=== PATIENT | male | born 1960 | race Caucasian/White ===

== ENCOUNTER 2022-09-20 00:52 | Emergency (ER) | payer MEDICAID, SELFPAY ==
[2022-09-20] VITALS (23 sets, daily range): BP systolic 85–125; BP diastolic 58–101; PULSE 106–150; RESP 18–51; TEMP 36.6; O2SAT 80–100; BMI 27.8
--- NOTE | 2022-09-20 00:54 | ECG_ITS ---
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 Measurements Intervals [place] Rate: 140 P: 68 PA: 137 QRS: 40 QRSD: 102 T: 25 QT: 237 QTc: 363 Interpretive Statements SINUS TACHYCARDIA, POSSIBLE ATRIAL FLUTTER PROBABLE INFERIOR MYOCARDIAL INFARCTION , PROBABLY OLD [35 ms Q WAVE IN II/aVF] ST DEPRESSION, CONSIDER SUBENDOCARDIAL INJURY [0.1+ mV ST DEPRESSION] No previous ECG available for comparison Electronically Signed On 09-20-2022 13:20:39 CDT by Benton Goodman M.D. [id number]
--- NOTE | 2022-09-20 00:56 | XRR_ITS ---
PROCEDURE INFORMATION: Exam: XR Chest Exam date and time: 09/20/2022 12:52 AM Age: 62 years old Clinical indication: Dyspnea and shortness of breath and tachypnea; Patient HX: Resp distress. Severe SOB with tachypnea. Immediately put on bipap upon er arrival. History of copd and chf. TECHNIQUE: Imaging protocol: Radiologic exam of the chest. Views: 1 view. Total images: 1 COMPARISON: No relevant prior studies available. FINDINGS: Lungs: Pulmonary vascular congestion. Pulmonary interstitial edema and early pulmonary edema felt to be present. An underlying pneumonia cannot be excluded. Pleural spaces: Unremarkable. No pleural effusion. No pneumothorax. Heart/Mediastinum: Cardiomegaly. Bones/joints: Unremarkable. XR/XR chest 1V portable [id number] IMPRESSION: 1. Cardiomegaly with pulmonary vascular congestion. 2. Pulmonary interstitial edema and early pulmonary edema felt to be present. An underlying pneumonia cannot be excluded.
[2022-09-20] MEDS: albuterol 2.5 mg/3 mL Neb 5 MG INHALATION (01:02)
[2022-09-20] MEDS: dilTIAZem 5 mg/mL SDV 5 mL 10 MG IVP (01:04)
[2022-09-20 01:05] LABS: Basophils % 0.2 %; Eosinophils % 0.1 %; Hemoglobin 13.9 g/dL (11.7-16.6); Lymphocytes # 2.8 10^3/uL (0.8-4.8); Lymphocytes % 17.1 %; Mean Corpuscular HGB Conc 33.1 g/dL (30.0-36.0); Mean Corpuscular Hemoglobin 32.5 pg (28.0-34.0); Mean Corpuscular Volume 98.1 fl (80-94); Mean Platelet Volume 9.6 fL (7.4-10.4); Neutrophils % 75.2 %; Nucleated Red Blood Cells % 0 %; Platelet Count 274 10^3/cmm (130-400); Red Blood Count 4.28 10^6/uL (4.1-5.3); Red Cell Distribution Width 13.2 % (12.1-15.1); White Blood Count 16.3 10^3/uL (4.0-10.0)
[2022-09-20] MEDS: ipratropium 0.5 mg/2.5 mL Neb INHALATION (01:05)
[2022-09-20] MEDS: hydrocortisone 100 mg/2 mL SDV IVP (01:06)
--- NOTE | 2022-09-20 01:12 | ED_ITS ---
HPI - SOB/Dyspnea General: Chief Complaint: Shortness of Breath/Dyspnea Stated Complaint: difficulty breathing Time Seen by Provider: 09/20/22 00:56 Source: EMS Mode of arrival: EMS Limitations: no limitations History of Present Illness: HPI Narrative: 62-year-old male has a history of COPD along with extensive cardiac history [facility] she was transferred to [facility] she was then discharged but they are supposed to schedule him in 2 weeks for a CABG. He states today got severely short of breath called [facility] they arrived he was in the 60s on room air he does not wear oxygen at home he was tachycardic with EMS they did give him adenosine and tried a cardioversion but when I looked at the rhythms that look like a sinus tachycardia and he is in sinus tachycardia here. He denies any chest pain but does have severe short of breath he is respirations are in the 40s able to speak in only 2-4 word sentences. No cough or fever. Associated symptoms: Deny abdominal pain, chest pain, fever(s), nausea or vomiting Review of Systems Const: Denies: fever(s) or chills ENMT: Denies: throat pain or dental pain Card: Denies: chest pain Resp: Reports: dyspnea and wheezing GI: Denies: abdominal pain, nausea, vomiting or diarrhea : Denies: dysuria Musc: Denies: neck pain or back pain Skin/Breast: Denies: rash Neuro: Denies: headache(s) Physical Exam Const: COMMON NORMALS: patient oriented x3 GENERAL APPEARANCE: in distress and ill appearing HENMT: COMMON NORMALS: normocephalic and atraumatic HEAD & SCALP: normocephalic and atraumatic Eye: COMMON NORMALS: Equal, round and reactive pupils present and EOMs intact bilaterally PUPIL: Yes Equal, round and reactive pupils present Neck/C-Spine: COMMON NORMALS: full ROM and supple Chest: COMMONS NORMALS: normal inspection of the chest and normal palpation of entire chest wall Resp: EFFORT & INSPECTION: Yes respiratory distress, Yes labored and Yes uses accessory muscles AUSCULTATION: rales and wheezes Cardio: COMMON NORMALS: regular rhythm and No murmurs present (Cardio) RATE: tachycardic RHYTHM: regular rhythm GI: COMMON NORMALS: Normal to inspection, nondistended, normoactive bowel sounds present, Soft to palpation, non-tender and no masses PALPATION: Yes Soft to palpation Extremity: COMMON NORMALS: normal to inspection and full ROM Neuro: COMMON NORMALS: patient oriented x3, moves all extremities and no focal motor deficits Psych: COMMON NORMALS: mental status grossly normal, Normal thought process present and cooperative THOUGHT PROCESS: Normal thought process present Skin: COMMON NORMALS: no rashes or lesions noted and no wounds GENERAL SKIN EXAM: no rashes or lesions noted Course Vital Signs: Vital signs: Vital Signs Temperature 97.9 F 09/20/22 00:55 Pulse Rate 120 H 09/20/22 02:30 Respiratory Rate 41 H 09/20/22 02:30 Blood Pressure 95/71 09/20/22 02:30 Pulse Oximetry 99 09/20/22 02:30 Oxygen Delivery Me thod BiPAP 09/20/22 02:30 Fraction of Inspir ed Oxygen 80 09/20/22 01:22 MDM - SOB/Dyspnea Medical Decision Making Patient presents with shortness of breath with pulmonary edema he is much improved here on BiPAP his first troponin is elevated consistent with NSTEMI EKG shows no signs of ST elevation I did speak to [facility] as patient is scheduled to have a CABG there and will transfer there for higher level of care for CT surgery. Lab Data 09/20/22 00:25 09/20/22 00:25 Labs/Radiology: Laboratory Results WBC 16.3 10^3/uL (4.0-10.0) H 09/20/22 00:25 RBC 4.28 10^6/uL (4.1-5.3) 09/20/22 00:25 Hgb 13.9 g/dL (11.7-16.6) 09/20/22 00:25 Hct 42.0 % (42.0-52.0) 09/20/22 00:25 MCV 98.1 fl (80-94) H 09/20/22 00:25 MCH 32.5 pg (28.0-34.0) 09/20/22 00:25 MCHC 33.1 g/dL (30.0-36.0) 09/20/22 00:25 RDW 13.2 % (12.1-15.1) 09/20/22 00:25 Plt Count 274 10^3/cmm (130-400) 09/20/22 00:25 MPV 9.6 fL (7.4-10.4) 09/20/22 00:25 Neut % (Auto) 75.2 % 09/20/22 00:25 Lymph % (Auto) 17.1 % 09/20/22 00:25 [place] % (Auto) 6.0 % 09/20/22 00:25 Eos % (Auto) 0.1 % 09/20/22 00:25 Baso % (Auto) 0.2 % 09/20/22 00:25 Neut # (Auto) 12.30 10^3/uL (1.8-7.7) H 09/20/22 00:25 Lymph # (Auto) 2.8 10^3/uL (0.8-4.8) 09/20/22 00:25 [place] # (Auto) 1.0 10^3/uL (0.2-0.9) H 09/20/22 00:25 Eos # (Auto) 0.0 10^3/uL (0.0-0.8) 09/20/22 00:25 Baso # (Auto) 0.0 10^3/uL (0.0-0.1) 09/20/22 00:25 Nucleated RBC % (auto) 0 % 09/20/22 00:25 Nucleated RBCs # 0.0 /100WBC 09/20/22 00:25 PT 14.40 SECONDS (12.1-14.9) 09/20/22 00:25 INR 1.08 (0.8-1.2) 09/20/22 00:25 Specimen Type Arterial 09/20/22 01:04 Sample Site Radial, left 09/20/22 01:04 ABG pH 7.25 (7.35-7.45) L 09/20/22 01:04 ABG pCO2 46.0 mmHg (35-45) H 09/20/22 01:04 ABG pO2 155.0 mmHg (80.0-100.0) H 09/20/22 01:04 ABG HCO3 20.2 mmol/L (22-26) L 09/20/22 01:04 ABG Base Excess -7.0 mmol/L (-2.0-2.0) L 09/20/22 01:04 Alex Test Pos 09/20/22 01:04 Hematocrit 41.0 % (42-52) L 09/20/22 01:04 O2 Delivery Device Bipap 09/20/22 01:04 FiO2 100.0 % 09/20/22 01:04 Contact Worker ID [email or web address] 09/20/22 01:04 Sodium 131 mmol/L (136-145) L 09/20/22 00:25 Potassium 4.5 mmol/L (3.5-5.1) 09/20/22 00:25 Chloride 95 mmol/L (98-107) L 09/20/22 00:25 Carbon Dioxide 22 mmol/L (22-29) 09/20/22 00:25 Anion Gap 18.5 (5-19) 09/20/22 00:25 BUN 14 mg/dL (8-23) 09/20/22 00:25 Creatinine 1.1 mg/dL (0.7-1.2) 09/20/22 00:25 GFR Calculation 67.4 mL/min (90-130) L 09/20/22 00:25 Glucose 114 mg/dL (65-115) 09/20/22 00:25 Calculated Osmolality 273 mOsm/kg (285-295) L 09/20/22 00:25 Calcium 9.0 mg/dL (8.5-10.5) 09/20/22 00:25 Total Bilirubin 0.8 mg/dL (0.15-1.2) 09/20/22 00:25 AST 43 U/L (0-40) H 09/20/22 00:25 ALT 43 U/L (0-41) H 09/20/22 00:25 Alkaline Phosphatase 107 U/L (40-130) 09/20/22 00:25 Troponin T Baseline 1220 ng/L (0-15) H* 09/20/22 00:25 NT-Pro-B Natriuret Pep 8391 pg/mL (0-125) H 09/20/22 00:25 Total Protein 6.3 g/dL (6.6-8.7) L 09/20/22 00:25 Albumin 4.0 g/dL (3.5-5.2) 09/20/22 00:25 Globulin 2.3 g/dL (1.3-4.6) 09/20/22 00:25 EKG Data EKG 1: I personally reviewed and interpreted this EKG as follows: EKG Interpretation Date: 09/20/22 EKG interpretation time: 00:54 Interpretation: sinus tach hr [address] or t wave abnormalities qrs 98 qtc 318 Critical Care Time Critical Care Time: Critical Care Time: Yes Total Critical Care Time: 50 Attestation: The high probability of a clinically significant, sudden or life threatening deterioration of the patient's resp system(s) required my full and direct att ention, intervention and personal management. The critical care time is as shown. This time is in addition to time spent performing any reported procedures but includes the following: [x] Data and vital sign review and interpretation [x] Patient assessment, examination and intervention [x] Documentation [x] Medication orders and management Discharge Plan Discharge Patient Disposition: Admitted As Inpatient Clinical Impression: Non-ST elevation PR (NSTEMI), Pulmonary edema, Acute respiratory failure with hypoxia Condition: Stable Prescriptions: No Action budesonide-formoterol [Symbicort] 160-4.5 mcg/actuation HFA aerosol inhaler 2 puff inhalation BID albuterol 90 mcg/actuation aerosol inhalation lisinopril 30 mg tablet 30 mg PO DAILY prednisone 20 mg tablet 20 mg PO BID 5 Days Qty: 10 0RF azithromycin 250 mg tablet See Rx Instructions PO .COMPLEX Qty: 6 0RF Rx Instructions: take 500 mg today (day 1), then 250 mg for 4 days (days 2-5) PO metoprolol succinate 25 mg tablet extended release 24 hr 25 mg PO DAILY atorvastatin 40 mg tablet 40 mg PO DAILY Coding Level of Care Code ED Senior Compliance Analyst for Quynh Goodson
[2022-09-20 01:14] LABS: INR 1.08 (0.8-1.2)
[2022-09-20 01:15] LABS: ABG PH Result 7.25 (7.35-7.45); Blood Gas Allen Test Pos; Blood Gas Sample Site Radial, left; Blood Gas Sample Type Arterial; HCO3 ABG 20.2 mmol/L (22-26)
[2022-09-20 01:16] LABS: Oxygen Device BIPAP
[2022-09-20 01:29] LABS: Troponin(5th) Baseline 1220 ng/L (0-15)
[2022-09-20 01:33] LABS: Alanine Aminotransferase 43 U/L (0-41); Alkaline Phosphatase 107 U/L (40-130); Anion Gap 18.5 (5-19); Aspartate Amino Transferase 43 U/L (0-40); Blood Urea Nitrogen 14 mg/dL (8-23); Carbon Dioxide 22 mmol/L (22-29); Chloride 95 mmol/L (98-107); Globulin 2.3 g/dL (1.3-4.6); Glomerular Filtration Rate 67.4 mL/min (90-130); Glucose 114 mg/dL (65-115); NT Pro B Type Natriuretic Pept 8391 pg/mL (0-125); Osmolality Calculated 273 mOsm/kg (285-295); Potassium 4.5 mmol/L (3.5-5.1); Sodium 131 mmol/L (136-145); Total Bilirubin 0.8 mg/dL (0.15-1.2); Total Protein 6.3 g/dL (6.6-8.7)
[2022-09-20] MEDS: enoxaparin 100 mg/mL Syringe 85 MG SUBCUT (02:02)
--- NOTE | 2022-09-20 02:06 | ECG_ITS ---
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 Measurements Intervals [place] Rate: 133 P: 60 [place]: 124 QRS: 60 QRSD: 105 T: 60 QT: 256 QTc: 381 Interpretive Statements SINUS TACHYCARDIA PROBABLE INFERIOR MYOCARDIAL INFARCTION , PROBABLY OLD [35 ms Q WAVE IN II/aVF] ST DEVIATION AND MODERATE T-WAVE ABNORMALITY, CONSIDER LATERAL ISCHEMIA [-0.1+ mV T-WAVE IN I/aVL/V5/V6] No previous ECG available for comparison Electronically Signed On 09-20-2022 13:56:14 CDT by Benton Goodman M.D. [id number]
[2022-09-20] MEDS: sodium chloride 0.9% 500 ML 999 ML IV (02:54)
[2022-09-20 04:02] LABS: Troponin 5 2HR 1084 ng/L (0-15)
[2022-09-20 04:04] LABS: ABG PCO2 31.8 mmHg (35-45); ABG PH Result 7.39 (7.35-7.45); Arterial Blood Gas Hematocrit 40.2 % (42-52); Base Excess ABG -4.9 mmol/L (-2.0-2.0); Blood Gas Allen Test Pos; Blood Gas Sample Site Radial, left; Blood Gas Sample Type Arterial; HCO3 ABG 19.1 mmol/L (22-26); Oxygen Device BIPAP
[2022-09-20] MEDS: etomidate 2 mg/mL INJ SDV 10 mL 20 MG IVP (05:21)
[2022-09-20] MEDS: vecuronium 10 mg SDV IVP (05:22)
--- NOTE | 2022-09-20 05:35 | XRR_ITS ---
PROCEDURE INFORMATION: Exam: XR Chest Exam date and time: 09/20/2022 5:36 AM Age: 62 years old Clinical indication: Device placement; Ett placement (vent status); Patient HX: Check S/P et and central line placement; Additional info: Intubation TECHNIQUE: Imaging protocol: Radiologic exam of the chest. Views: 1 view. Total images: 2107 COMPARISON: CR XR chest 1V portable [id number] 09/20/2022 12:52 AM FINDINGS: Tubes, catheters and devices: Endotracheal tube overlies the trachea with the tip 8.0 cm above the jonnathan. A right internal jugular central venous catheter is present, with its tip overlying the region of the superior vena cava. Lungs: Pulmonary vascular congestion. Bilateral pulmonary opacities are again noted and have shown interval worsening from the prior exam. Pleural spaces: Unremarkable. No pleural effusion. No pneumothorax. Heart/Mediastinum: Cardiomegaly. Bones/joints: Unremarkable. XR/XR chest 1V portable [id number] IMPRESSION: 1. A right internal jugular central venous catheter is present, with its tip overlying the region of the superior vena cava. 2. Cardiomegaly with pulmonary vascular congestion. 3. Bilateral pulmonary opacities are again noted and have shown interval worsening from the prior exam.
--- NOTE | 2022-09-20 05:36 | W.ED.SOB ---
HPI - SOB/Dyspnea General: Chief Complaint: Shortness of Breath/Dyspnea Stated Complaint: difficulty breathing Time Seen by Provider: 09/20/22 00:56 Source: EMS Mode of arrival: EMS Limitations: no limitations History of Present Illness: HPI Narrative: a Procedures Central Line Placement Right IJ: Time Out Performed: Yes Patient Placed on Monitor/Pulse Ox: Yes MD Prep: mask, gown and gloves Central Line Prep: Povidone-Iodine 1% Ultrasound Used for Placement: Yes Central Line Lumen Inserted: triple Post Procedure: sutured in place, good blood return and all ports aspirated, flushed, capped Post Procedure X-Ray: tip of catheter in good position Patient Tolerated Procedure: well Complications: none Intubation Time out performed: Yes sedative: Etomidate Mg Given: 20 paralytic: Vecuronium Mg Given: 10 Laryngoscope: Kiya ET Tube Size: 8 ET Tube Uncuffed: No Tube Secured Depth (cm): 26 Tube Secured Location: lips Tube Placement Confirmation: visualized tube passing through cords, equal breath sounds bilaterally, no breath sounds over epigastrium and confirmation by capnometry Patient Tolerated Procedure: well Intubation Complications: none Course Vital Signs: Vital signs: Vital Signs Temperature 97.9 F 09/20/22 00:55 Pulse Rate 120 H 09/20/22 04:04 Respiratory Rate 41 H 09/20/22 02:30 Blood Pressure 95/71 09/20/22 02:30 Pulse Oximetry 100 09/20/22 04:04 Oxygen Delivery Me thod BiPAP 09/20/22 02:30 Fraction of Inspir ed Oxygen 80 09/20/22 04:04 MDM - SOB/Dyspnea Medical Decision Making Procedure note for central line and an ablation for patient while in his ED stay Lab Data 09/20/22 00:25 09/20/22 00:25 Labs/Radiology: Radiology Impressions Chest X-Ray 09/20/22 00:56 IMPRESSION: 1. Cardiomegaly with pulmonary vascular congestion. 2. Pulmonary interstitial edema and early pulmonary edema felt to be present. An underlying pneumonia cannot be excluded. Laboratory Results WBC 16.3 10^3/uL (4.0-10.0) H 09/20/22 00:25 RBC 4.28 10^6/uL (4.1-5.3) 09/20/22 00:25 Hgb 13.9 g/dL (11.7-16.6) 09/20/22 00:25 Hct 42.0 % (42.0-52.0) 09/20/22 00:25 MCV 98.1 fl (80-94) H 09/20/22 00:25 MCH 32.5 pg (28.0-34.0) 09/20/22 00:25 MCHC 33.1 g/dL (30.0-36.0) 09/20/22 00:25 RDW 13.2 % (12.1-15.1) 09/20/22 00:25 Plt Count 274 10^3/cmm (130-400) 09/20/22 00:25 MPV 9.6 fL (7.4-10.4) 09/20/22 00:25 Neut % (Auto) 75.2 % 09/20/22 00:25 Lymph % (Auto) 17.1 % 09/20/22 00:25 [place] % (Auto) 6.0 % 09/20/22 00:25 Eos % (Auto) 0.1 % 09/20/22 00:25 Baso % (Auto) 0.2 % 09/20/22 00:25 Neut # (Auto) 12.30 10^3/uL (1.8-7.7) H 09/20/22 00:25 Lymph # (Auto) 2.8 10^3/uL (0.8-4.8) 09/20/22 00:25 [place] # (Auto) 1.0 10^3/uL (0.2-0.9) H 09/20/22 00:25 Eos # (Auto) 0.0 10^3/uL (0.0-0.8) 09/20/22 00:25 Baso # (Auto) 0.0 10^3/uL (0.0-0.1) 09/20/22 00:25 Nucleated RBC % (auto) 0 % 09/20/22 00:25 Nucleated RBCs # 0.0 /100WBC 09/20/22 00:25 PT 14.40 SECONDS (12.1-14.9) 09/20/22 00:25 INR 1.08 (0.8-1.2) 09/20/22 00:25 Specimen Type Arterial 09/20/22 03:55 Sample Site Radial, left 09/20/22 03:55 ABG pH 7.39 (7.35-7.45) 09/20/22 03:55 ABG pCO2 31.8 mmHg (35-45) L 09/20/22 03:55 ABG pO2 138.0 mmHg (80.0-100.0) H 09/20/22 03:55 ABG HCO3 19.1 mmol/L (22-26) L 09/20/22 03:55 ABG Base Excess -4.9 mmol/L (-2.0-2.0) L 09/20/22 03:55 Laex Test Pos 09/20/22 03:55 Hematocrit 40.2 % (42-52) L 09/20/22 03:55 O2 Delivery Device Bipap 09/20/22 03:55 FiO2 80.0 % 09/20/22 03:55 Retail Sales Associate Bilingual ID [email or web address] 09/20/22 03:55 Sodium 131 mmol/L (136-145) L 09/20/22 00:25 Potassium 4.5 mmol/L (3.5-5.1) 09/20/22 00:25 Chloride 95 mmol/L (98-107) L 09/20/22 00:25 Carbon Dioxide 22 mmol/L (22-29) 09/20/22 00:25 Anion Gap 18.5 (5-19) 09/20/22 00:25 BUN 14 mg/dL (8-23) 09/20/22 00:25 Creatinine 1.1 mg/dL (0.7-1.2) 09/20/22 00:25 GFR Calculation 67.4 mL/min (90-130) L 09/20/22 00:25 Glucose 114 mg/dL (65-115) 09/20/22 00:25 Calculated Osmolality 273 mOsm/kg (285-295) L 09/20/22 00:25 Calcium 9.0 mg/dL (8.5-10.5) 09/20/22 00:25 Total Bilirubin 0.8 mg/dL (0.15-1.2) 09/20/22 00:25 AST 43 U/L (0-40) H 09/20/22 00:25 ALT 43 U/L (0-41) H 09/20/22 00:25 Alkaline Phosphatase 107 U/L (40-130) 09/20/22 00:25 Troponin T Baseline 1220 ng/L (0-15) H* 09/20/22 00:25 Troponin T 120 Minute 1084 ng/L (0-15) H 09/20/22 03:19 Delta Troponin T -136 ABS# (0-10) L 09/20/22 03:19 NT-Pro-B Natriuret Pep 8391 pg/mL (0-125) H 09/20/22 00:25 Total Protein 6.3 g/dL (6.6-8.7) L 09/20/22 00:25 Albumin 4.0 g/dL (3.5-5.2) 09/20/22 00:25 Globulin 2.3 g/dL (1.3-4.6) 09/20/22 00:25 Discharge Plan Discharge Patient Disposition: Admitted As Inpatient Clinical Impression: Non-ST elevation [place] (NSTEMI), Pulmonary edema, Acute respiratory failure with hypoxia Condition: Stable Coding Level of Care Code ED Label Printer for Quynh Goodson
--- NOTE | 2022-09-20 05:58 | PC.NURSE ---
PT SHOWED INCREASED WORK OF BREATHING. INTUBATION PERFORMED. 0521 ETOMIDATE 20MG 0522 VECURONIUM 10MG 0523 INTUBATION COMPLETE 8FR TUBE, 23 AT THE LIP.
--- NOTE | 2022-09-22 12:26 | DCPLANNER ---
disease case manager rn called patient due to no primary care physician - no answer at this time.
== END 2022-09-20 05:50 | disposition critical access hospital (66) ==
PROVIDERS: Emergency Provider Emergency Medicine
DX: I21.4 Non-ST elevation (NSTEMI) myocardial infarction (principal); J81.1 Chronic pulmonary edema; J96.01 Acute respiratory failure with hypoxia
CPT/HCPCS: 31500; 36556; 36600; 71045; 80053; 82803; 83880; 84484; 85025; 85610; 93005; 94640; 94660; 96365; 96372; 96375; 99291; C1751; J1650; J1720; J3010; J3490; J7040; J7060; J7613; J7644